=== PATIENT | female | born 1945 | race Hispanic/Latino ===

== ENCOUNTER 2018-12-11 15:12 | Emergency (ER) | payer BC ==
--- NOTE | 2018-12-11 16:15 | ED PDOC ---
HPI: Chest Pain Time Seen by Provider: 12/11/18 15:41 Chief Complaint (Nursing): Chest Pain Chief Complaint (Provider): Chest Pain History Per: Patient History/Exam Limitations: no limitations Onset/Duration Of Symptoms: Days Current Symptoms Are (Timing): Gone Now Quality: Sharp, Burning Additional Complaint(s): Robina Huang is a 73 year old female with a past medical history of hypertension, diabetes and depression who is presenting to the ED for evaluation of episodes of left sided chest pain radiating down left arm onset yesterday. Patient states that she had 2 episodes, one yesterday and one today both lasting for a couple minutes. She describes the pain as sharp and burning but resolved spontaneously. Patient states that at this time she has no chest pain, no arm pain, and no shortness of breath. She does admit that work stress has increased a lot unexpectedly, and reports that she is taking [place] for depression. Patient adds that her blood sugar has been elevated recently around 160-200, which concerned her. 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 PMD: Maddison Solomon Past Medical History Reviewed: Historical Data, Nursing Documentation, Vital Signs Vital Signs: Last Vital Signs Temp 97.9 F 12/11/18 15:18 Pulse 89 12/11/18 15:18 Resp 16 12/11/18 15:18 BP 169/80 H 12/11/18 15:18 Pulse Ox 98 12/11/18 15:18 - Medical History PMH: Depression, Diabetes, HTN - Surgical History Other surgeries: Hysterectomy - Family History Family History: States: Unknown Family Hx - Social History Current smoker - smoking cessation education provided: No Alcohol: None Drugs: Denies - Allergies Allergies/Adverse Reactions: Allergies Allergy/AdvReac Type Severity Reaction Status Date / Time Penicillins Allergy RASH Verified 12/11/18 15:18 Review of Systems ROS Statement: Except As Marked, All Systems Reviewed And Found Negative Cardiovascular: Positive for: Chest Pain (resolved ) Respiratory: Negative for: Shortness of Breath Musculoskeletal: Positive for: Arm Pain (resolved ) Physical Exam - Reviewed Nursing Documentation Reviewed: Yes Vital Signs Reviewed: Yes - Physical Exam Appears: Positive for: Well, Non-toxic, No Acute Distress Head Exam: Positive for: ATRAUMATIC, NORMAL INSPECTION, NORMOCEPHALIC Skin: Positive for: Normal Color, Warm, DRY Eye Exam: Positive for: EOMI, Normal appearance, PERRL Cardiovascular/Chest: Positive for: Regular Rate, Rhythm. Negative for: Murmur Respiratory: Positive for: Normal Breath Sounds. Negative for: Respiratory Distress Gastrointestinal/Abdominal: Positive for: Normal Exam, Soft. Negative for: Tenderness Back: Positive for: Normal Inspection Extremity: Positive for: Normal ROM. Negative for: Pedal Edema, Calf Tenderness, Deformity, Swelling Neurologic/Psych: Positive for: Alert, Oriented. Negative for: Motor/Sensory Deficits - Laboratory Results Result Diagrams: 12/11/18 16:33 12/11/18 16:33 - ECG O2 Sat by Pulse Oximetry: 98 (RA) Pulse Ox Interpretation: Normal Medical Decision Making Medical Decision Making: Time: 15:23 A/P: workup for ACS --Low suspicion at this time --Reevaluate patient Time: 2127 --2 sets of troponin came back normal. Patient's vitals remain within normal limits. --Patient is pain free --Instructed to follow up with PMD and arranged an outpatient follow up with commissions analyst. --Return parameters were discussed. Scribe Attestation: Documented by Lluvia Britt, acting as a scribe for Karol Acosta MD. Provider Scribe Attestation: All medical record entries made by the Scribe were at my direction and personally dictated by me. I have reviewed the chart and agree that the record accurately reflects my personal performance of the history, physical exam, me dical decision making, and the department course for this patient. I have also personally directed, reviewed, and agree with the discharge instructions and disposition. Disposition - Clinical Impression Clinical Impression: Chest pain - Disposition Referrals: Irasema Ramirez MD [Staff Provider] - Disposition: Routine/Home Disposition Time: 21:26 Condition: IMPROVED Additional Instructions: Follow up with primary medical doctor within one week. Follow up with a commissions analyst. Return to the emergency department if symptoms worsen or if new symptoms develop. Instructions: Chest Pain (DC), Heart Disease in Women (DC) Forms: [employer] (Panamanian), [facility] ED School/Work Excuse Print Language: MOLDOVAN
--- NOTE | 2018-12-11 16:40 | RAD ---
Date of service: 12/11/2018 HISTORY: cough COMPARISON: 03/18/2014 TECHNIQUE: Chest PA and lateral FINDINGS: LUNGS: No active pulmonary disease. PLEURA: No significant pleural effusion identified. No pneumothorax apparent. CARDIOVASCULAR: No aortic atherosclerotic calcification present. Normal cardiac size. No pulmonary vascular congestion. OSSEOUS STRUCTURES: No significant abnormalities. VISUALIZED UPPER ABDOMEN: Normal. OTHER FINDINGS: None. IMPRESSION: No active disease.
[2018-12-11 16:42] LABS: BASO # 0.1 K/uL (0.0-0.2); BASO % 0.9 % (0.0-2.0); EOS # 0.2 K/uL (0.0-0.7); EOS % 2.2 % (0.0-4.0); HEMOGLOBIN 11.3 g/dL (12.0-16.0); LYMPH # 3.2 K/uL (1.0-4.3); LYMPH % 33.2 % (20.0-40.0); MEAN CELL VOLUME 79.9 fl (81.0-99.0); MEAN CORPUSCULAR HEMOGLOBIN 26.2 pg (27.0-31.0); MEAN CORPUSCULAR HGB CONC 32.8 g/dL (33.0-37.0); MEAN PLATELET VOLUME 9.1 fl (7.2-11.7); MONO # 0.6 K/uL (0.0-0.8); NEUT # 5.6 K/uL (1.8-7.0); NEUT % 57.7 % (50.0-75.0); RBC 4.33 Mil/uL (3.80-5.20); RED CELL DISTRIBUTION WIDTH 17.6 % (11.5-14.5); WHITE BLOOD COUNT 9.7 K/uL (4.8-10.8)
[2018-12-11 16:52] LABS: INR 0.9; PROTHROMBIN TIME 10.6 Seconds (9.8-13.1)
[2018-12-11 16:55] LABS: PARTIAL THROMBOPLASTIN TIME 45.1 Seconds (25.6-37.1)
[2018-12-11 17:03] LABS: BLOOD UREA NITROGEN 22 mg/dl (7-17); CALCIUM 10.1 mg/dL (8.4-10.2); GFR NON-AFRICAN AMERICAN > 60
[2018-12-11 19:49] VITALS: TEMP 98; O2SAT 98
[2018-12-11 22:16] VITALS: BP 128/71; PULSE 82; RESP 20
--- NOTE | 2018-12-12 10:20 | CARD ---
APPROVED REPORT Date of service: 12/11/2018 EKG Measurement Heart [id number] <Conclusion> Normal sinus rhythm Normal ECG
== END 2018-12-11 22:16 | disposition home or self-care (01) ==
LOC: H.ER 15:12
DX: R07.89 Other chest pain (principal); E11.9 Type 2 diabetes mellitus without complications; I10 Essential (primary) hypertension; Z88.0 Allergy status to penicillin

== ENCOUNTER 2019-03-26 09:07 | Inpatient (IN) | payer BC, MEDICARE ==
[2019-03-26] MEDS ORDERED: Iohexol 240 (50 ml) PO ONE (10:17)
[2019-03-26] MEDS ORDERED: Sodium Chloride 0.9% 1,000 ML IV SCH (10:30)
--- NOTE | 2019-03-26 10:32 | ED PDOC ---
HPI: Abdomen Time Seen by Provider: 03/26/19 09:52 Chief Complaint (Nursing): GI Problem Chief Complaint (Provider): Diarrhea History Per: Patient History/Exam Limitations: no limitations Onset/Duration Of Symptoms: Days (Sunday) Additional Complaint(s): Pt. with diarrhea, nonbloody since Sunday. Her has the same. They were in [place] and had something to eat and could have caused the issue. Came back Sunday and he was admitted to the hospital. Pt. was given cipro by the urgent care which she did not start. Has cramping abd pain as well. No chest pain, dyspnea, weakness, dizziness. No fever. Past Medical History Reviewed: Nursing Documentation, Vital Signs Vital Signs: Last Vital Signs Temp 98.3 F 03/26/19 09:27 Pulse 101 H 03/26/19 09:27 Resp 17 03/26/19 09:27 BP 124/70 03/26/19 09:27 Pulse Ox 98 03/26/19 09:34 Primary Care Provider: FAMILY PROVIDER,NO - Medical History PMH: Depression, Diabetes, HTN, Hypercholesterolemia - Surgical History Surgical History: No Surg Hx - Family History Family History: States: Unknown Family Hx - Living Arrangements Living Arrangements: With Family - Social History Alcohol: None Drugs: Denies - Allergies Allergies/Adverse Reactions: Allergies Allergy/AdvReac Type Severity Reaction Status Date / Time Fbemgsb-Aqz-Cpi Reductase Allergy Mild RASH Verified 03/26/19 09:43 Inhibitor Penicillins Allergy RASH Verified 03/26/19 09:37 Review of Systems ROS Statement: Except As Marked, All Systems Reviewed And Found Negative Gastrointestinal: Positive for: Abdominal Pain, Diarrhea. Negative for: Nausea, Vomiting Physical Exam - Reviewed Nursing Documentation Reviewed: Yes Vital Signs Reviewed: Yes - Physical Exam Appears: Positive for: Uncomfortable Head Exam: Positive for: ATRAUMATIC, NORMAL INSPECTION, NORMOCEPHALIC Skin: Positive for: Normal Color, Warm, DRY Eye Exam: Positive for: EOMI, Normal appearance, PERRL ENT: Positive for: Normal ENT Inspection Neck: Positive for: Normal, Painless ROM Cardiovascular/Chest: Positive for: Regular Rate, Rhythm Respiratory: Positive for: CNT, Normal Breath Sounds Gastrointestinal/Abdominal: Positive for: Soft, Tenderness (diffuse mild) Back: Positive for: Normal Inspection. Negative for: L CVA Tenderness, R CVA Tenderness Extremity: Positive for: Normal ROM. Negative for: Tenderness Neurological/Psych: Positive for: Awake, Alert, Normal Tone - Laboratory Results Result Diagrams: 03/26/19 10:30 03/26/19 10:30 Interpretation Of Abn Labs: 11.5 wbc, bun 30, trop mild elevation - ECG ECG: Positive for: Interpreted By Me, Viewed By Me ECG Rhythm: Positive for: Sinus Tachycardia O2 Sat by Pulse Oximetry: 98 Pulse Ox Interpretation: Normal - Radiology X-Ray: Read By Radiologist X-Ray Interpretation: No Acute Disease - Progress ED Course And Treament: CT: Cholelithiasis with gallbladder wall thickening and pericholecystic fluid as well as surrounding infiltration changes of the mesentery. Findings may represent cholecystitis. Wall thickening of portions of the proximal small, bowel ileum and colon consistent with inflammatory bowel disease 1200: Continue fluids for dehydration. 1438: Stable. Spoke with for Dr. Dumont. Will admit tele. 1442: Spoke with Dr. Pizarro. Will consult. Wants to trend troponin and will see pt. in [place]. Pt. with no chest pain. No dyspnea. 1445: CT shows possible cholecystitis and colon inflammation. Dr. Dent and surgery resident aware and will consult. 1456: Spoke with Dr. Hogan. Will consult. - Critical Care Total Time (In Min): 30 Documented Critical Care: Time excludes all time spent performint seperately billable procedures Disposition - Clinical Impression Clinical Impression: Sepsis, Abdominal pain, Diarrhea, Elevated troponin, Colitis, Cholecystitis, Dehydration - Patient ED Disposition Is Patient to be Admitted: Yes Counseled Patient/Family Regarding: Studies Performed, Diagnosis - Disposition Disposition Time: 14:39 Condition: FAIR - Pt Status Changed To: Hospital Disposition Of: Inpatient - Admit Certification Admit to Inpatient:: After my assessment, the patient will require hospitalization for at least two midnights. This is because of the severity of symptoms shown, intensity of services needed, and/or the medical risk in this patient being treated as an outpatient. - POA Present On Arrival: None
[2019-03-26 10:34] LABS: VENOUS BLOOD GAS BASE EXCESS -2.7 mmol/L (0.0-2.0); VENOUS BLOOD GAS PCO2 40 mmHg (40-60); VENOUS BLOOD GAS PO2 20 mm/Hg (30-55); VENOUS BLOOD PH 7.36 (7.32-7.43)
[2019-03-26 10:39] LABS: BASO # 0.1 K/uL (0.0-0.2); BASO % 0.5 % (0.0-2.0); EOS % 0.1 % (0.0-4.0); HEMOGLOBIN 11.1 g/dL (12.0-16.0); LYMPH # 1.6 K/uL (1.0-4.3); LYMPH % 14.2 % (20.0-40.0); MEAN CELL VOLUME 79.6 fl (81.0-99.0); MEAN CORPUSCULAR HEMOGLOBIN 25.7 pg (27.0-31.0); MEAN CORPUSCULAR HGB CONC 32.3 g/dL (33.0-37.0); MONO # 1.3 K/uL (0.0-0.8); NEUT # 8.6 K/uL (1.8-7.0); NEUT % 74.2 % (50.0-75.0); RBC 4.31 Mil/uL (3.80-5.20); WHITE BLOOD COUNT 11.5 K/uL (4.8-10.8)
[2019-03-26] MEDS ORDERED: Iohexol 240 (50 ml) ONE (10:40)
[2019-03-26 10:58] LABS: ALB/GLOB RATIO 1.3 (1.0-2.1); ALBUMIN 4.1 g/dL (3.5-5.0); ALT/SGPT 36 U/L (9-52); AST/SGOT 57 U/L (14-36); BLOOD UREA NITROGEN 30 mg/dl (7-17); CALCIUM 8.8 mg/dL (8.4-10.2); GFR NON-AFRICAN AMERICAN > 60
[2019-03-26 11:03] LABS: INR 1.2; PROTHROMBIN TIME 13.5 Seconds (9.8-13.1)
[2019-03-26 11:05] LABS: PARTIAL THROMBOPLASTIN TIME 29.3 Seconds (25.6-37.1)
--- NOTE | 2019-03-26 11:36 | RAD ---
Date of service: 03/26/2019 HISTORY: Sepsis Patient COMPARISON: 12/11/2018 FINDINGS: LUNGS: No active pulmonary disease. PLEURA: No significant pleural effusion identified, no pneumothorax apparent. CARDIOVASCULAR: No atherosclerotic calcification present Normal. OSSEOUS STRUCTURES: No significant abnormalities. VISUALIZED UPPER ABDOMEN: Normal. OTHER FINDINGS: Stable hiatal hernia IMPRESSION: No active disease. No significant interval change compared to the prior examination(s).
--- NOTE | 2019-03-26 11:42 | CARD ---
APPROVED REPORT Date of service: 03/26/2019 EKG Measurement Heart [id number] <Conclusion> Sinus tachycardia Otherwise normal ECG
[2019-03-26] MEDS ORDERED: metroNIDAZOLE 500mg/100ml NS 100 ML IV STA (12:16)
[2019-03-26] MEDS ORDERED: Ciprofloxacin 400mg/200ml D5W 400 MG/200 ML BAG IV STA (12:16)
[2019-03-26] MEDS ORDERED: Sodium Chloride 0.9% 1,000 ML IV STA (12:18)
[2019-03-26] MEDS ORDERED: Ciprofloxacin 400mg/200ml D5W 400 MG/200 ML BAG IVPB ONE (12:52)
[2019-03-26] MEDS ORDERED: Iohexol 300 100 ML IJ ONE (13:16)
[2019-03-26] MEDS ORDERED: Sodium Chloride 0.9% 50 ML IV ONE (13:16)
--- NOTE | 2019-03-26 14:41 | CT ---
Date of service: 03/26/2019 PROCEDURE: CT abdomen and pelvis HISTORY: Abdominal pain COMPARISON: Prior study available comparison. TECHNIQUE: Contiguous axial images of the abdomen and pelvis performed following oral and intravenous injection of approximately 95 cc Omnipaque 300 contrast material. Additional 2D sagittal and coronal reformats generated. Radiation dose: Total exam DLP = 650.17 mGy-cm. This CT exam was performed using one or more of the following dose reduction techniques: Automated exposure control, adjustment of the mA and/or kV according to patient size, and/or use of iterative reconstruction technique. FINDINGS: LOWER THORAX: Heart size is within range of normal. No significant pericardial effusion. There is a large hiatal hernia with wall thickening of the distal esophagus likely due protrusion gastric mucosa. Note that possibility of esophagitis and/or gastritis cannot be excluded. LIVER: The liver is enlarged measuring over 22 cm in CC dimension. Moderate diffuse fatty hepatic infiltration. Portal and splenic veins are opacified. There is a tiny approximately 2.8 mm low-attenuation focus superior aspect left lobe liver near the diaphragmatic dome which too small to characterize. Follow-up CT scan at interval could be performed to assess stability. GALLBLADDER AND BILE DUCTS: Cholelithiasis with mild gallbladder wall thickening and pericholecystic fluid with some vague infiltration changes. Findings may represent acute cholecystitis. Clinical correlation recommended. PANCREAS: The pancreas is atrophic and fatty replaced.. SPLEEN: Spleen exhibits normal size and attenuation pattern without mass collection or calcification ADRENALS: The glands appear grossly unremarkable. KIDNEYS AND URETERS: Kidneys demonstrate symmetric nephrograms. No evidence of nephrolithiasis or hydronephrosis. BLADDER: Urinary bladder is completely distended with no evidence of intraluminal gallbladder calculi. REPRODUCTIVE: Hysterectomy. APPENDIX: The appendix is not positively identified however no obvious inflammatory changes in the right lower quadrant of the abdomen not withstanding wall thickening of the terminal ileum large bowel. BOWEL: Evaluation of the bowel is limited due to incomplete opacification.. As mentioned above, there is a large hiatal hernia through which duodenal diverticulum with distended distal duodenum.. Several loops of proximal small bowel also slightly prominent in caliber and exhibit mild wall thickening.. No evidence of acute mechanical bowel obstruction with oral contrast material opacifying the distal small bowel and colon. There is wall thickening of the cecum ascending and most of the descending as well as sigmoid colon consistent with colitis. Collectively findings may represent inflammatory bowel disease with wall thickening of the small bowel as well. Multiple colonic diverticula are also noted along the distal descending and sigmoid colon which are felt to be incidental.. There appears to be some minor atelectasis-scarring changes both lung bases. PERITONEUM: Unremarkable. No fluid collection. No free air. LYMPH NODES: Multiple small to medium-sized mesenteric lymph nodes including lymph nodes in the right lower quadrant of the abdomen VASCULATURE: Unremarkable. No aortic aneurysm. Aortic atherosclerotic calcification or mural plaque present. BONES: Mild multilevel degenerative spondylosis of the lower thoracic and lumbar spine. OTHER FINDINGS: None. IMPRESSION: Hepatomegaly with moderate fatty hepatic infiltration.. Tiny 2.8 mm low-attenuation focus superior aspect left lobe liver near the diaphragmatic dome too small to characterize. Followup interval could be performed to assess stability. Cholelithiasis with gallbladder wall thickening and pericholecystic fluid as well as surrounding infiltration changes of the mesentery. Findings may represent cholecystitis. Wall thickening of portions of the proximal small, bowel ileum and colon consistent with inflammatory bowel disease. There also colonic diverticula which are felt to be incidental. Apparent duodenal diverticulum.
[2019-03-26] MEDS ORDERED: metroNIDAZOLE 500mg/100ml NS 100 ML IVPB ONE (15:05)
--- NOTE | 2019-03-26 15:58 | CP.PCM.PN ---
Subjective - Date & Time of Evaluation Date of Evaluation: 03/26/19 Time of Evaluation: 15:58 Objective - Vital Signs/Intake and Output Vital Signs (last 24 hours): Temp Pulse Resp BP Pulse Ox 97.8 F 105 H 20 121/64 98 03/26/19 13:30 03/26/19 13:30 03/26/19 13:30 03/26/19 13:30 03/26/19 15:08 - Medications Medications: Current Medications Sodium Chloride (Sodium Chloride 0.9%) 1,000 mls @ 1,000 mls/hr IV .Q1H MARIELENA Last Admin: 03/26/19 10:45 Dose: 1,000 mls/hr - Labs Labs: 03/26/19 10:30 03/26/19 10:30 PT 13.5 Seconds (9.8-13.1) H 03/26/19 10:30 INR 1.2 03/26/19 10:30 APTT 29.3 Seconds (25.6-37.1) 03/26/19 10:30
--- NOTE | 2019-03-26 15:58 | CP.PCM.CON ---
History of Present Illness - History of Present Illness History of Present Illness: ASKED TO SEE PT FOR ELEVATED TROP LEVEL. Past Patient History - Past Social History Alcohol: None Drugs: Denies - CARDIAC Hx Hypercholesterolemia: Yes Hx Hypertension: Yes - ENDOCRINE/METABOLIC Hx Diabetes Mellitus Type 2: Yes - PSYCHIATRIC Hx Depression: Yes - SURGICAL HISTORY Hx Hysterectomy: Yes - ANESTHESIA Hx Anesthesia: Yes Hx Anesthesia Reactions: No Meds Allergies/Adverse Reactions: Allergies Allergy/AdvReac Type Severity Reaction Status Date / Time Tkarxtf-Drt-Pty Reductase Allergy Mild RASH Verified 03/26/19 09:43 Inhibitor Penicillins Allergy RASH Verified 03/26/19 09:37 - Medications Medications: Current Medications Sodium Chloride (Sodium Chloride 0.9%) 1,000 mls @ 1,000 mls/hr IV .Q1H MARIELENA Last Admin: 03/26/19 10:45 Dose: 1,000 mls/hr Results - Vital Signs Recent Vital Signs: Last Vital Signs Temp 97.8 F 03/26/19 13:30 Pulse 105 H 03/26/19 13:30 Resp 20 03/26/19 13:30 BP 121/64 03/26/19 13:30 Pulse Ox 98 03/26/19 15:08 - Labs Result Diagrams: 03/26/19 10:30 03/26/19 10:30 Labs: Laboratory Results - last 24 hr 03/26/19 03/26/19 03/26/19 10:01 10:27 10:30 WBC 11.5 H RBC 4.31 Hgb 11.1 L Hct 34.3 MCV 79.6 L MCH 25.7 L MCHC 32.3 L RDW 17.0 H Plt Count 317 MPV 9.0 Neut % (Auto) 74.2 Lymph % (Auto) 14.2 L Glenn % (Auto) 11.0 H Eos % (Auto) 0.1 Baso % (Auto) 0.5 Neut # (Auto) 8.6 H Lymph # (Auto) 1.6 Glenn # (Auto) 1.3 H Eos # (Auto) 0.0 Baso # (Auto) 0.1 PT INR APTT pO2 20 L VBG pH 7.36 VBG pCO2 40 VBG HCO3 21.4 VBG Total CO2 23.8 VBG O2 Sat (Calc) 38.8 L VBG Base Excess -2.7 L VBG Potassium 4.9 Sodium 129.0 L Chloride 100.0 Glucose 220 H Lactate 1.6 FiO2 21.0 Potassium Carbon Dioxide Anion Gap BUN Creatinine Est GFR ( Amer) Est GFR (Non-Af Amer) POC Glucose (mg/dL) 225 H Random Glucose Calcium Phosphorus Magnesium Total Bilirubin AST ALT Alkaline Phosphatase Troponin I Total Protein Albumin Globulin Albumin/Globulin Ratio Venous Blood Potassium 4.9 03/26/19 03/26/19 10:30 10:30 WBC RBC Hgb Hct MCV MCH MCHC RDW Plt Count MPV Neut % (Auto) Lymph % (Auto) [place] % (Auto) Eos % (Auto) Baso % (Auto) Neut # (Auto) Lymph # (Auto) Glenn # (Auto) Eos # (Auto) Baso # (Auto) PT 13.5 H INR 1.2 APTT 29.3 pO2 VBG pH VBG pCO2 VBG HCO3 VBG Total CO2 VBG O2 Sat (Calc) VBG Base Excess VBG Potassium Sodium 133 Chloride 96 L Glucose Lactate FiO2 Potassium 4.3 Carbon Dioxide 23 Anion Gap 18 BUN 30 H Creatinine 0.8 Est GFR ( Amer) > 60 Est GFR (Non-Af Amer) > 60 POC Glucose (mg/dL) Random Glucose 218 H Calcium 8.8 Phosphorus 4.0 Magnesium 1.5 L Total Bilirubin 0.5 AST 57 H ALT 36 Alkaline Phosphatase 51 Troponin I 0.2150 H* Total Protein 7.4 Albumin 4.1 Globulin 3.3 Albumin/Globulin Ratio 1.3 Venous Blood Potassium Assessment & Plan (1) Prerenal azotemia Status: Acute (2) Dehydration Status: Acute (3) Diarrhea Status: Acute (4) Elevated troponin Status: Acute - Assessment and Plan (Free Text) Plan: TREND TROPONINS THE MINOR ELEVATION IS LIKELY DUE TO PRERENAL STATE ECHO IN AM MONITOR LYTES IVF PT IS DEHYDRATED. 45 MIN TOTAL CARE TIME.
--- NOTE | 2019-03-26 16:15 | CP.PCM.CON ---
History of Present Illness - History of Present Illness History of Present Illness: Surgery Consult Note- Dr. Nelson Reason for Consult: rule out Acute Cholecystitis 73F pmhx significant for DM, HTN, Depression on [place] presents to [facility] ED w/ multiple episodes of diarrhea and generalized abdominal pain. Of note patient was recently in [place] and returned on Sunday and started to develop symptoms when returned to [facility]. is admitted for the same symptoms. During ED workup patient underwent CT scan which showed questionable thickened gallbladder wall, and possible vivek-cholecystic fluid. In addition patient has elevated troponins. T.bili and liver enzymes within normal limits. Subsequently surgery was consulted. During examination patient denies mid-epigastric, RUQ, or right scapular pain. Subjective fevers, and nausea. No changes in Urinary habits. 12 pt ROS conducted, negative otherwise stated above PMH: stated above PSH: hysterectomy, diagnostic laparoscopy (both in 1988) ALL: PCN- (Rash), Statin SocialHx: denies current tobacco, etoh, recreational drug use FH: non-contributory Review of Systems - Review of Systems All systems: reviewed and no additional remarkable complaints except - Constitutional Constitutional: As Per HPI Past Patient History - Past Social History Alcohol: None Drugs: Denies - CARDIAC Hx Hypercholesterolemia: Yes Hx Hypertension: Yes - ENDOCRINE/METABOLIC Hx Diabetes Mellitus Type 2: Yes - PSYCHIATRIC Hx Depression: Yes - SURGICAL HISTORY Hx Hysterectomy: Yes - ANESTHESIA Hx Anesthesia: Yes Hx Anesthesia Reactions: No Meds Allergies/Adverse Reactions: Allergies Allergy/AdvReac Type Severity Reaction Status Date / Time Hbcrybb-Ngx-Pzk Reductase Allergy Mild RASH Verified 03/26/19 09:43 Inhibitor Penicillins Allergy RASH Verified 03/26/19 09:37 - Medications Medications: Current Medications Sodium Chloride (Sodium Chloride 0.9%) 1,000 mls @ 1,000 mls/hr IV .Q1H MARIELENA Last Admin: 03/26/19 10:45 Dose: 1,000 mls/hr Physical Exam - Constitutional Appears: Non-toxic, No Acute Distress - Head Exam Head Exam: ATRAUMATIC Additional comments: thinned hair - Eye Exam Eye Exam: EOMI. absent: Scleral icterus - ENT Exam ENT Exam: Mucous Membranes Moist - Respiratory Exam Respiratory Exam: NORMAL BREATHING PATTERN. absent: Accessory Muscle Use, Respiratory Distress - Cardiovascular Exam Cardiovascular Exam: REGULAR RHYTHM. absent: Bradycardia, Tachycardia - GI/Abdominal Exam GI & Abdominal Exam: Soft, Tenderness. absent: Distended, Firm, Guarding, Hernia, Rigid Additional comments: No RUQ abdominal pain Negative Abel's sign Results - Vital Signs Recent Vital Signs: Last Vital Signs Temp 97.8 F 03/26/19 13:30 Pulse 105 H 03/26/19 13:30 Resp 20 03/26/19 13:30 BP 121/64 03/26/19 13:30 Pulse Ox 98 03/26/19 15:08 - Labs Result Diagrams: 03/26/19 10:30 03/26/19 10:30 Labs: Laboratory Results - last 24 hr 03/26/19 03/26/19 03/26/19 10:01 10:27 10:30 WBC 11.5 H RBC 4.31 Hgb 11.1 L Hct 34.3 MCV 79.6 L MCH 25.7 L MCHC 32.3 L RDW 17.0 H Plt Count 317 MPV 9.0 Neut % (Auto) 74.2 Lymph % (Auto) 14.2 L [place] % (Auto) 11.0 H Eos % (Auto) 0.1 Baso % (Auto) 0.5 Neut # (Auto) 8.6 H Lymph # (Auto) 1.6 [place] # (Auto) 1.3 H Eos # (Auto) 0.0 Baso # (Auto) 0.1 PT INR APTT pO2 20 L VBG pH 7.36 VBG pCO2 40 VBG HCO3 21.4 VBG Total CO2 23.8 VBG O2 Sat (Calc) 38.8 L VBG Base Excess -2.7 L VBG Potassium 4.9 Sodium 129.0 L Chloride 100.0 Glucose 220 H Lactate 1.6 FiO2 21.0 Potassium Carbon Dioxide Anion Gap BUN Creatinine Est GFR ( Amer) Est GFR (Non-Af Amer) POC Glucose (mg/dL) 225 H Random Glucose Calcium Phosphorus Magnesium Total Bilirubin AST ALT Alkaline Phosphatase Troponin I Total Protein Albumin Globulin Albumin/Globulin Ratio Venous Blood Potassium 4.9 03/26/19 03/26/19 10:30 10:30 WBC RBC Hgb Hct MCV MCH MCHC RDW Plt Count MPV Neut % (Auto) Lymph % (Auto) [place] % (Auto) Eos % (Auto) Baso % (Auto) Neut # (Auto) Lymph # (Auto) [place] # (Auto) Eos # (Auto) Baso # (Auto) PT 13.5 H INR 1.2 APTT 29.3 pO2 VBG pH VBG pCO2 VBG HCO3 VBG Total CO2 VBG O2 Sat (Calc) VBG Base Excess VBG Potassium Sodium 133 Chloride 96 L Glucose Lactate FiO2 Potassium 4.3 Carbon Dioxide 23 Anion Gap 18 BUN 30 H Creatinine 0.8 Est GFR ( Amer) > 60 Est GFR (Non-Af Amer) > 60 POC Glucose (mg/dL) Random Glucose 218 H Calcium 8.8 Phosphorus 4.0 Magnesium 1.5 L Total Bilirubin 0.5 AST 57 H ALT 36 Alkaline Phosphatase 51 Troponin I 0.2150 H* Total Protein 7.4 Albumin 4.1 Globulin 3.3 Albumin/Globulin Ratio 1.3 Venous Blood Potassium Assessment & Plan - Assessment and Plan (Free Text) Assessment: 73F w/ Gastroenteritis Unlikely Acute Cholecystitis Plan: - Recommend IVF/Abx - Pain control PRN - will follow up Abd US - enteritis - no acute surgical intervention at this time; Not Acute Cholecystitis - d/w Dr. Nelson Surgical Attending [facility] PGY2
--- NOTE | 2019-03-26 18:14 | CP.CCUPN ---
CCU Subjective - Physician Review Subjective (Free Text): Consultation for admission to ICU: Interim events; Medical and Nursing notes all reviewed: 73F admitted today for abdominal pain and diarrhea, CTAP findings were suggestive of colitis and GB wall thickening. No fevers noted an admission so far. No hypotension noted, RA SPO2 is normal. Mild tachycardia is noted at 105/min. No chest discomfort reported, nor dyspnea, palpitations, diaphoresis, N/V, recent fevers or chills, no cough. Vitals: Afebrile, HR 105, SBP 120s, RR 17-20, SPO2 at best 98%. ROS: No other pertinent negs or positives on 10+ system review. Home Meds: none listed. Allergies: statin-class meds, Penicillin PMSFH: All other Nursing and physician documentation reviewed to date; no new pertinent info noted relevant to current medical problems. EXAM- HEENT: no icterus, no gaze preference, pupils equal and reactive 3 mm size. NECK: supple, no visible JVD, no adenopathy, thyroid non- palpable. CHEST: decreased BS at the bases, no wheezes audible bilaterally. HEART: regular, distant, tachy S1S2, no rubs or murmurs noted ABD: soft, no tympany, no fluid wave, no guarding or focal tenderness; no organomegaly- spleen and liver non-palpable, BS hypoactive. EXT: no cyanosis, no calf tenderness or palpable cords, distal pulses intact and symmetrical. NEURO: no gross focal motor deficits. SKIN: no rashes, warm and dry LABS: WBC= 11.5 HGB= 11.1 PLTs= 317K INR= 1.2 VBG 7.36/40/20 with 38/% satn. 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 EKG: sinus 104/min, no acute changes compared to 12/11/18 study. IMPRESSION / MAJOR PROBLEMS NOW: 1. Non-Specific Abdominal Pain, 2 Non-infectious Colitis with Diarrhea r/o Food intolerance 2. Azotemia / Dehydration 3. r/o NSTEMI 4. No Severe Sepsis physiology PLAN: 1. Telemetry bed monitoring. No need for ICU admission or observation, unless she fails to respond to therapy. 2. Serial Trops, repeat EKG. ECHO to assess for any hypokinesis. 3. IVF hydration. Fluid challenge if oliguric. 4. Consider Abdominal US to complement CTAP findings.
--- NOTE | 2019-03-26 18:19 | US ---
Date of service: 03/26/2019 HISTORY: RUQ abd pain COMPARISON: None. TECHNIQUE: Sonographic evaluation of the right upper quadrant of the abdomen. FINDINGS: LIVER: Measures 20.7 cm in length. There is diffuse increased echogenicity of the liver parenchyma. No mass. No intrahepatic bile duct dilatation. GALLBLADDER: There are multiple gallstones. The gallbladder is distended and there is mild wall thickening/edema/irregularity in the gallbladder wall. No wall thickening or pericholecystic fluid. The sonographic Abel's sign is negative. COMMON BILE DUCT: Measures 4.8 mm. No stones. No dilatation. PANCREAS: Unremarkable as visualized. No mass. No ductal dilatation. RIGHT KIDNEY: Measures 10.7 cm in length. Normal echogenicity. No calculus, mass, or hydronephrosis. AORTA: No aneurysmal dilatation. IVC: Unremarkable. OTHER FINDINGS: None . IMPRESSION: Distended gallbladder, cholelithiasis and mild gallbladder wall edema/irregularity could represent acute calculus cholecystitis in the appropriate clinical setting. Clinical follow-up is advised.
[2019-03-26 22:22] LABS: SQUAMOUS EPITHIAL 1 /hpf (0-5); URINE BACTERIA MANY (<OCC); URINE BILIRUBIN NEGATIVE (NEGATIVE); URINE BLOOD NEGATIVE (NEGATIVE); URINE CLARITY CLEAR (Clear); URINE COLOR YELLOW (YELLOW); URINE GLUCOSE (UA) NEG (NEGATIVE); URINE LEUKOCYTE ESTERASE NEG Leu/uL (Negative); URINE PROTEIN NEGATIVE (NEGATIVE); URINE UROBILINOGEN 0.2-1.0 mg/dL (0.2-1.0)
[2019-03-26] MEDS ORDERED: Lactated Ringer's 1,000 ML IV SCH (23:00)
[2019-03-27] MEDS: Ciprofloxacin 400mg/200ml D5W 400 MG/200 ML BAG IVPB SCH ×2 (00:29→12:23)
[2019-03-27] MEDS: metroNIDAZOLE 500mg/100ml NS 100 ML IVPB SCH ×3 (00:29→17:49)
[2019-03-27] MEDS ORDERED: metroNIDAZOLE 500mg/100ml NS IVPB SCH (01:00)
[2019-03-27 02:31] VITALS: BMI 25.4
[2019-03-27 06:30] LABS: BASO # 0.1 K/uL (0.0-0.2); BASO % 0.5 % (0.0-2.0); EOS # 0.1 K/uL (0.0-0.7); EOS % 1.4 % (0.0-4.0); HEMOGLOBIN 11.3 g/dL (12.0-16.0); LYMPH # 1.8 K/uL (1.0-4.3); LYMPH % 16.5 % (20.0-40.0); MEAN CELL VOLUME 79.7 fl (81.0-99.0); MEAN CORPUSCULAR HEMOGLOBIN 26.4 pg (27.0-31.0); MEAN CORPUSCULAR HGB CONC 33.1 g/dL (33.0-37.0); MONO # 1.2 K/uL (0.0-0.8); MONO % 11.4 % (0.0-10.0); NEUT # 7.6 K/uL (1.8-7.0); NEUT % 70.2 % (50.0-75.0); NRBC % 0.1 % (0.0-0.0); RBC 4.28 Mil/uL (3.80-5.20); RED CELL DISTRIBUTION WIDTH 16.9 % (11.5-14.5); WHITE BLOOD COUNT 10.8 K/uL (4.8-10.8)
[2019-03-27 06:46] LABS: ALB/GLOB RATIO 1.1 (1.0-2.1); ALBUMIN 3.2 g/dL (3.5-5.0); ALT/SGPT 34 U/L (9-52); AST/SGOT 42 U/L (14-36); BLOOD UREA NITROGEN 13 mg/dl (7-17); CALCIUM 8.1 mg/dL (8.4-10.2); GFR NON-AFRICAN AMERICAN > 60
[2019-03-27] MEDS: GlipiZIDE 5 mg SR Tab PO SCH (09:49)
[2019-03-27] MEDS: Enoxaparin 40 mg Syringe SC SCH (09:50)
[2019-03-27] MEDS: Pantoprazole 40 mg EC Tab PO SCH (09:50)
[2019-03-27] MEDS: Lithium Carbonate 150 MG CAP PO SCH ×2 (09:50→17:45)
[2019-03-27] MEDS: Lactobacillus Acidophilus 500 MU Cap PO SCH ×2 (09:55→17:51)
--- NOTE | 2019-03-27 10:45 | CP.PCM.PN ---
Subjective - Date & Time of Evaluation Date of Evaluation: 03/27/19 Time of Evaluation: 10:43 - Subjective Subjective: Surgery Progress note- Dr. Nelson Patient still has multiple episodes of diarrhea overnight. Stool started to turn dark, likely bilious fluid in nature. Denies fevers, chills, chest pain. Denies RUQ tenderness. Objective - Vital Signs/Intake and Output Vital Signs (last 24 hours): Temp Pulse Resp BP Pulse Ox 98.1 F 99 H 20 122/67 95 03/27/19 08:24 03/27/19 09:51 03/27/19 08:24 03/27/19 09:51 03/27/19 08:24 - Medications Medications: Current Medications Atorvastatin Calcium (Lipitor) 10 mg PO DAILY [facility] Last Admin: 03/27/19 09:49 Dose: 10 mg Enoxaparin Sodium (Lovenox) 40 mg SC DAILY [facility]; Protocol Last Admin: 03/27/19 09:50 Dose: 40 mg Glipizide (Glucotrol Xl) 5 mg PO ACB [facility] Last Admin: 03/27/19 09:49 Dose: 5 mg Sodium Chloride (Sodium Chloride 0.9%) 1,000 mls @ 1,000 mls/hr IV .Q1H [facility] Last Admin: 03/26/19 10:45 Dose: 1,000 mls/hr Ciprofloxacin (Cipro 400mg/200ml Dsw) 400 mg in 200 mls @ 200 mls/hr IVPB Q12H [facility]; Protocol Last Admin: 03/27/19 00:29 Dose: 200 mls/hr Lactated Ringer's (Lactated Ringer's) 1,000 mls @ 100 mls/hr IV .Q10H [facility] Last Admin: 03/26/19 23:22 Dose: 100 mls/hr Metronidazole (Flagyl 500mg/100ml Ns) 100 mls @ 100 mls/hr IVPB Q8 [facility] Last Admin: 03/27/19 09:48 Dose: 100 mls/hr Lactobacillus Acidophilus (Bacid Acidophilus) 1 cap PO BID [facility] Last Admin: 03/27/19 09:55 Dose: 1 cap Lisinopril (Zestril) 10 mg PO DAILY [facility] Last Admin: 03/27/19 09:51 Dose: 10 mg [place] Carbonate ([place] Carbonate 150mg) 150 mg PO BID [facility] Last Admin: 03/27/19 09:50 Dose: 150 mg Metformin HCl (Glucophage) 1,000 mg PO BID [facility] Last Admin: 03/27/19 09:48 Dose: 1,000 mg Pantoprazole Sodium (Protonix Ec Tab) 40 mg PO DAILY [facility] Last Admin: 03/27/19 09:50 Dose: 40 mg Sitagliptin Phosphate (Januvia) 100 mg PO DAILY [facility] Last Admin: 03/27/19 09:49 Dose: 100 mg - Labs Labs: 03/27/19 04:35 03/27/19 04:35 PT 13.5 Seconds (9.8-13.1) H 03/26/19 10:30 INR 1.2 03/26/19 10:30 APTT 29.3 Seconds (25.6-37.1) 03/26/19 10:30 - Constitutional Appears: Non-toxic, No Acute Distress - Head Exam Head Exam: ATRAUMATIC - Eye Exam Eye Exam: EOMI. absent: Scleral icterus - ENT Exam ENT Exam: Mucous Membranes Dry - Respiratory Exam Respiratory Exam: NORMAL BREATHING PATTERN. absent: Accessory Muscle Use, Respiratory Distress - Cardiovascular Exam Cardiovascular Exam: REGULAR RHYTHM. absent: Bradycardia, Tachycardia - GI/Abdominal Exam GI & Abdominal Exam: Distended, Soft, Tenderness (generalized tenderness. No RUQ tenderness). absent: Firm, Guarding, Rigid - Neurological Exam Neurological Exam: Alert, Awake, Oriented x3 - Psychiatric Exam Psychiatric exam: Normal Affect - Skin Skin Exam: Intact, Warm Assessment and Plan - Assessment and Plan (Free Text) Assessment: 73F w/ Enteritis Plan: - recommend CLD - Ice chips for comfort - c/w Abx - stool work up - no acute surgical intervention - please re-consult as needed - d/w Dr. Nelson Surgical attending [facility] PGY2
[2019-03-27] MEDS ORDERED: Lactated Ringer's 1,000 ML IV SCH (11:00)
[2019-03-27] MEDS: Lactated Ringer's 1,000 ML IV SCH (12:30)
--- NOTE | 2019-03-27 18:39 | CP.PCM.HP ---
History of Present Illness - History of Present Illness History of Present Illness: 73 yo female presented to ED with diarrhea and abdominal pain since return from [place] over the weekend. CT A/P was completed in ED, possible cholecystitis and colon inflammation. Troponin was noted to be elevated as well. Surgery and Cardiology was consulted. Patient seen and examined at bedside. No chest pain, sob, palpitations. Abdominal cramping + unable to tolerate po since admission though would like to advance diet now since she feels better no other complaints offered at this time meds: as per chart allergies: as per chart fam hx: non contributory Present on Admission - Present on Admission Any Indicators Present on Admission: No Review of Systems - Review of Systems All systems: reviewed and no additional remarkable complaints except (menioted above) Past Patient History - Past Medical History & Family History Past Medical History?: Yes - Past Social History Smoking Status: Never Smoked - CARDIAC Hx Cardiac Disorders: Yes Hx Hypercholesterolemia: Yes Hx Hypertension: Yes - PULMONARY Hx Respiratory Disorders: No - NEUROLOGICAL Hx Neurological Disorder: No - HEENT Hx HEENT Problems: No - RENAL Hx Chronic Kidney Disease: No - ENDOCRINE/METABOLIC Hx Diabetes Mellitus Type 2: Yes - HEMATOLOGICAL/ONCOLOGICAL Hx Blood Disorders: No - INTEGUMENTARY Hx Dermatological Problems: No - MUSCULOSKELETAL/RHEUMATOLOGICAL Hx Musculoskeletal Disorders: Yes Hx Falls: Yes - GASTROINTESTINAL Hx Gastrointestinal Disorders: No - GENITOURINARY/GYNECOLOGICAL Hx Genitourinary Disorders: No - PSYCHIATRIC Hx Depression: Yes Hx Substance Use: No - SURGICAL HISTORY Hx Hysterectomy: Yes - ANESTHESIA Hx Anesthesia: Yes Hx Anesthesia Reactions: No Hx Malignant Hyperthermia: No Has any member of the family had a problem w/ anesthesia?: No Meds Home Medications: Home Medication List Medication Instructions Recorded Confirmed Type Cefpodoxime [Vantin] 200 mg PO BID #14 tab 03/29/19 Rx Allergies/Adverse Reactions: Allergies Allergy/AdvReac Type Severity Reaction Status Date / Time [id number] Reductase Allergy Mild RASH Verified 03/26/19 09:43 Inhibitor Penicillins Allergy RASH Verified 03/26/19 09:37 Physical Exam - Constitutional Appears: Non-toxic, No Acute Distress - Head Exam Head Exam: NORMAL INSPECTION - Eye Exam Eye Exam: Normal appearance - Respiratory Exam Respiratory Exam: NORMAL BREATHING PATTERN - Cardiovascular Exam Cardiovascular Exam: +S1, +S2 - GI/Abdominal Exam GI & Abdominal Exam: Normal Bowel Sounds, Soft, Tenderness - Extremities Exam Extremities exam: Positive for: normal inspection - Neurological Exam Neurological exam: Alert, Oriented x3 - Psychiatric Exam Psychiatric exam: Normal Affect, Normal Mood - Skin Skin Exam: Normal Color, Warm Results - Vital Signs Recent Vital Signs: Last Vital Signs Temp 98.5 F 03/27/19 16:00 Pulse 92 H 03/27/19 16:00 Resp 16 03/27/19 16:00 BP 122/72 03/27/19 16:00 Pulse Ox 95 03/27/19 16:00 - Labs Result Diagrams: 03/28/19 09:55 03/28/19 09:55 Labs: Laboratory Results - last 24 hr 03/26/19 03/26/19 03/27/19 20:30 23:39 04:35 WBC 10.8 RBC 4.28 Hgb 11.3 L Hct 34.1 MCV 79.7 L MCH 26.4 L MCHC 33.1 RDW 16.9 H Plt Count 314 MPV 9.0 Neut % (Auto) 70.2 Lymph % (Auto) 16.5 L Stokes % (Auto) 11.4 H Eos % (Auto) 1.4 Baso % (Auto) 0.5 Neut # (Auto) 7.6 H Lymph # (Auto) 1.8 Stokes # (Auto) 1.2 H Eos # (Auto) 0.1 Baso # (Auto) 0.1 Sodium Potassium Chloride Carbon Dioxide Anion Gap BUN Creatinine Est GFR ( Amer) Est GFR (Non-Af Amer) POC Glucose (mg/dL) Random Glucose Calcium Total Bilirubin AST ALT Alkaline Phosphatase Troponin I 0.0580 Total Protein Albumin Globulin Albumin/Globulin Ratio Urine Color Yellow Urine Clarity Clear Urine pH 6.0 Ur Specific [place] 1.021 Urine Protein Negative Urine Glucose (UA) Neg Urine Ketones Negative Urine Blood Negative Urine Nitrate Positive H Urine Bilirubin Negative Urine Urobilinogen 0.2-1.0 Ur Leukocyte Esterase Neg Urine RBC (Auto) 2 Urine Microscopic WBC < 1 Ur Squamous Epith Cells 1 Urine Bacteria Many H C. difficile Ag & Toxin 03/27/19 03/27/19 03/27/19 04:35 05:29 06:18 WBC RBC Hgb Hct MCV MCH MCHC RDW Plt Count MPV Neut % (Auto) Lymph % (Auto) Stokes % (Auto) Eos % (Auto) Baso % (Auto) Neut # (Auto) Lymph # (Auto) Stokes # (Auto) Eos # (Auto) Baso # (Auto) Sodium 134 Potassium 3.6 Chloride 103 Carbon Dioxide 19 L Anion Gap 16 BUN 13 Creatinine 0.6 L Est GFR ( Amer) > 60 Est GFR (Non-Af Amer) > 60 POC Glucose (mg/dL) 175 H Random Glucose 188 H Calcium 8.1 L Total Bilirubin 0.4 AST 42 H D ALT 34 Alkaline Phosphatase 52 Troponin I 0.0370 Total Protein 6.3 Albumin 3.2 L D Globulin 3.1 Albumin/Globulin Ratio 1.1 Urine Color Urine Clarity Urine pH Ur Specific [place] Urine Protein Urine Glucose (UA) Urine Ketones Urine Blood Urine Nitrate Urine Bilirubin Urine Urobilinogen Ur Leukocyte Esterase Urine RBC (Auto) Urine Microscopic WBC Ur Squamous Epith Cells Urine Bacteria C. difficile Ag & Toxin 03/27/19 03/27/19 03/27/19 10:00 11:22 16:11 WBC RBC Hgb Hct MCV MCH MCHC RDW Plt Count MPV Neut % (Auto) Lymph % (Auto) Stokes % (Auto) Eos % (Auto) Baso % (Auto) Neut # (Auto) Lymph # (Auto) Stokes # (Auto) Eos # (Auto) Baso # (Auto) Sodium Potassium Chloride Carbon Dioxide Anion Gap BUN Creatinine Est GFR ( Amer) Est GFR (Non-Af Amer) POC Glucose (mg/dL) 199 H 154 H Random Glucose Calcium Total Bilirubin AST ALT Alkaline Phosphatase Troponin I Total Protein Albumin Globulin Albumin/Globulin Ratio Urine Color Urine Clarity Urine pH Ur Specific [place] Urine Protein Urine Glucose (UA) Urine Ketones Urine Blood Urine Nitrate Urine Bilirubin Urine Urobilinogen Ur Leukocyte Esterase Urine RBC (Auto) Urine Microscopic WBC Ur Squamous Epith Cells Urine Bacteria C. difficile Ag & Toxin Negative Assessment & Plan (1) Abdominal pain Status: Acute (2) Diarrhea Status: Acute (3) Elevated troponin Status: Acute - Assessment and Plan (Free Text) Plan: available diagnostic data reviewed monitor labs monitor vitals surgery on board cardiology on board IVF advance diet as tolerated cipro/flagyl culture pending pain control prn rest of plan as ordered
--- NOTE | 2019-03-27 19:35 | CARD ---
APPROVED REPORT Date of service: 03/27/2019 EXAM: Two-dimensional and M-mode echocardiogram with Doppler and color Doppler. Other Information Quality : GoodRhythm : Tachycardia INDICATION Elevated Troponins 2D DIMENSIONS IVSd1.17 (0.7-1.1cm)LVDd3.81 (3.9-5.9cm) LVOT Diameter1.94 (1.8-2.4cm)PWd1.08 (0.7-1.1cm) IVSs1.15 (0.8-1.2cm)LVDs2.61 (2.5-4.0cm) FS (%) 31.6 %PWs1.17 (0.8-1.2cm) M-Mode DIMENSIONS Left Atrium (MM)4.50 (2.5-4.0cm)IVSd0.82 (0.7-1.1cm) Aortic Root2.97 (2.2-3.7cm)LVDd4.32 (4.0-5.6cm) Aortic Cusp Exc.1.79 (1.5-2.0cm)PWd0.82 (0.7-1.1cm) IVSs1.47 cmFS (%) 43 % LVDs2.47 (2.0-3.8cm)PWs1.06 cm Aortic Valve AoV Peak Zmqyqwsj578.4cm/sAoV VTI27.5cmAO Peak GR.13mmHg LVOT Peak Cqzenjmu388.1cm/sLVOT VTI20.15cmAO Mean GR.7mmHg JOSLYN (VMAX)1.18oe7TEG (VTI)1.27cm2 Mitral Valve MV E Ywzzpdwn18.7cm/sMV DECEL BPIC435rxKQ A Qakezhcu01.2cm/s MV UEK33rkZ/A ratio0.9MVA (PHT)3.77cm2 TDI Lateral E' Peak V9.78cm/sE/Lateral E'7.9E/Medial E'0.0 Tricuspid Valve RAP AVSYQVIU87ygVtUY Peak Gr.69wvDzWMBQ50jmUc LEFT VENTRICLE The left ventricle is normal size. There is normal left ventricular wall thickness. The left ventricular systolic function is normal. The estimated ejection fraction is 60-65% No regional wall motion abnormalities noted.. Transmitral Doppler flow pattern is Grade I-abnormal relaxation pattern. No left ventricle thrombus noted on this study. There is no ventricular septal defect visualized. There is no left ventricular aneurysm. There is no mass noted in the left ventricle. RIGHT VENTRICLE The right ventricle is normal size. There is normal right ventricular wall thickness. The right ventricular systolic function is normal. ATRIA The left atrium is mildly dilated. The right atrium size is normal. The interatrial septum is intact with no evidence for an atrial septal defect. AORTIC VALVE The aortic valve is normal in structure. No aortic regurgitation is present. There is no aortic valvular stenosis. There is no aortic valvular vegetation. MITRAL VALVE The mitral valve is normal in structure. There is no evidence of mitral valve prolapse. There is no mitral valve stenosis. There is no mitral valve regurgitation noted. TRICUSPID VALVE The tricuspid valve is normal in structure. There is no tricuspid valve regurgitation noted. There is no tricuspid valve prolapse or vegetation. There is no tricuspid valve stenosis. PULMONIC VALVE The pulmonary valve is normal in structure. There is no pulmonic valvular regurgitation. There is no pulmonic valvular stenosis. GREAT VESSELS The aortic root is normal in size. The ascending aorta is normal in size. The pulmonary artery is normal. The IVC is normal in size and collapses >50% with inspiration. PERICARDIAL EFFUSION There is no pericardial effusion. There is no pleural effusion. <Conclusion> The estimated ejection fraction is 60-65% Transmitral Doppler flow pattern is Grade I-abnormal relaxation pattern. The left atrium is mildly dilated. There is no tricuspid valve regurgitation noted.
[2019-03-28] MEDS: Ciprofloxacin 400mg/200ml D5W 400 MG/200 ML BAG IVPB SCH ×2 (00:27→12:42)
[2019-03-28] MEDS: metroNIDAZOLE 500mg/100ml NS 100 ML IVPB SCH ×3 (00:27→16:18)
[2019-03-28] MEDS: Lactated Ringer's 1,000 ML IV SCH ×3 (00:27→21:58)
[2019-03-28] MEDS: Lactobacillus Acidophilus 500 MU Cap PO SCH ×2 (08:40→16:17)
[2019-03-28] MEDS: GlipiZIDE 5 mg SR Tab PO SCH (08:44)
[2019-03-28] MEDS: Pantoprazole 40 mg EC Tab PO SCH (08:44)
[2019-03-28] MEDS: Lithium Carbonate 150 MG CAP PO SCH ×2 (08:44→16:18)
[2019-03-28] MEDS: Enoxaparin 40 mg Syringe SC SCH (08:45)
[2019-03-28 10:13] LABS: HEMOGLOBIN 11.1 g/dL (12.0-16.0); MEAN CELL VOLUME 79.3 fl (81.0-99.0); MEAN CORPUSCULAR HEMOGLOBIN 26.1 pg (27.0-31.0); RBC 4.25 Mil/uL (3.80-5.20); RED CELL DISTRIBUTION WIDTH 17.3 % (11.5-14.5); WHITE BLOOD COUNT 10.3 K/uL (4.8-10.8)
[2019-03-28 11:03] LABS: BLOOD UREA NITROGEN 4 mg/dl (7-17); CALCIUM 8.6 mg/dL (8.4-10.2); GFR NON-AFRICAN AMERICAN > 60
--- NOTE | 2019-03-28 11:44 | CP.PCM.PN ---
Subjective - Date & Time of Evaluation Date of Evaluation: 03/28/19 Time of Evaluation: 13:00 - Subjective Subjective: NO CP OR SOB. CONTINUED MILD DIARRHEA. BP MILDLY ELEVATED BUT PT IS ANXIOUS. Objective - Vital Signs/Intake and Output Vital Signs (last 24 hours): Temp Pulse Resp BP Pulse Ox 97.8 F 84 18 152/79 H 97 03/28/19 08:00 03/28/19 08:45 03/28/19 08:00 03/28/19 08:45 03/28/19 08:00 - Medications Medications: Current Medications Atorvastatin Calcium (Lipitor) 10 mg PO DAILY [facility] Last Admin: 03/28/19 08:44 Dose: 10 mg Dicyclomine HCl (Bentyl) 10 mg PO QID [facility] Last Admin: 03/28/19 08:43 Dose: 10 mg Enoxaparin Sodium (Lovenox) 40 mg SC DAILY [facility]; Protocol Last Admin: 03/28/19 08:45 Dose: 40 mg Glipizide (Glucotrol Xl) 5 mg PO ACB [facility] Last Admin: 03/28/19 08:44 Dose: 5 mg Sodium Chloride (Sodium Chloride 0.9%) 1,000 mls @ 1,000 mls/hr IV .Q1H [facility] Last Admin: 03/26/19 10:45 Dose: 1,000 mls/hr Ciprofloxacin (Cipro 400mg/200ml Dsw) 400 mg in 200 mls @ 200 mls/hr IVPB Q12H [facility]; Protocol Last Admin: 03/28/19 00:27 Dose: 200 mls/hr Metronidazole (Flagyl 500mg/100ml Ns) 100 mls @ 100 mls/hr IVPB Q8 [facility] Last Admin: 03/28/19 08:46 Dose: 100 mls/hr Lactated Ringer's (Lactated Ringer's) 1,000 mls @ 150 mls/hr IV .Q6H40M [facility] Last Admin: 03/28/19 08:49 Dose: 150 mls/hr Insulin Human Lispro (Humalog) 0 units SC ACHS [facility]; Protocol Lactobacillus Acidophilus (Bacid Acidophilus) 1 cap PO BID [facility] Last Admin: 03/28/19 08:40 Dose: 1 cap Lisinopril (Zestril) 10 mg PO DAILY [facility] Last Admin: 05/31/19 08:45 Dose: 10 mg [place] Carbonate ([place] Carbonate 150mg) 150 mg PO BID [facility] Last Admin: 03/28/19 08:44 Dose: 150 mg Pantoprazole Sodium (Protonix Ec Tab) 40 mg PO DAILY [facility] Last Admin: 03/28/19 08:44 Dose: 40 mg Paroxetine HCl (Paxil) 10 mg PO DAILY [facility] Sitagliptin Phosphate (Januvia) 100 mg PO DAILY [facility] Last Admin: 03/28/19 08:46 Dose: 100 mg - Labs Labs: 03/28/19 09:55 03/28/19 09:55 PT 13.5 Seconds (9.8-13.1) H 03/26/19 10:30 INR 1.2 03/26/19 10:30 APTT 29.3 Seconds (25.6-37.1) 03/26/19 10:30 Assessment and Plan (1) Prerenal azotemia Status: Acute (2) Dehydration Status: Acute (3) Diarrhea Status: Acute (4) Elevated troponin Status: Acute - Assessment and Plan (Free Text) Plan: TROP IS NORMAL AFTER PRERENAL TREATED. NO NEED FOR FURTHER CARDIAC EVAL. EF NML. BP ELEVATION LIKELY DUE TO IVF AND ANXIETY. WOULD NOT TITRATE BP MEDS.
[2019-03-28] MEDS: Insulin Lispro (humaLOG) 100 Units/ml Inj SC SCH ×3 (12:42→23:20)
[2019-03-29] MEDS: metroNIDAZOLE 500mg/100ml NS 100 ML IVPB SCH ×2 (00:06→09:37)
[2019-03-29] MEDS: Ciprofloxacin 400mg/200ml D5W 400 MG/200 ML BAG IVPB SCH ×2 (00:16→12:30)
[2019-03-29] MEDS: Lactated Ringer's 1,000 ML IV SCH (06:42)
[2019-03-29] MEDS: Insulin Lispro (humaLOG) 100 Units/ml Inj SC SCH ×2 (06:48→12:00)
[2019-03-29 08:24] VITALS: RESP 20
[2019-03-29] MEDS: Lithium Carbonate 150 MG CAP PO SCH (09:38)
[2019-03-29] MEDS: GlipiZIDE 5 mg SR Tab PO SCH (09:38)
[2019-03-29] MEDS: Pantoprazole 40 mg EC Tab PO SCH (09:38)
[2019-03-29] MEDS: Enoxaparin 40 mg Syringe SC SCH (09:39)
[2019-03-29] MEDS: Lactobacillus Acidophilus 500 MU Cap PO SCH (09:40)
[2019-03-29 12:34] VITALS: BP 168/87; PULSE 89; TEMP 97.7; O2SAT 98
--- NOTE | 2019-03-29 14:36 | CP.PCM.DIS ---
Provider - Provider Date of Admission: 03/26/19 14:55 Attending physician: Yoel Dumont MD Consults: 03/26/19 14:41 Cardiology Consult Stat Comment: Consulting Provider: Tahir Pizarro Consulting Physician: Tahir Pizarro Reason for Consult: elevated troponin 03/26/19 14:54 Critical Care Consult Stat Comment: Consulting Provider: Michele Hogan Consulting Physician: Michele Hogan Reason for Consult: colitis, cholecystitis, sepsis, elevated trop 03/26/19 15:58 Surgery [General Surgery Consult] Routine Comment: Consulting Provider: Miles Nelson Consulting Physician: Miles Nelson Reason for Consult: gastroenteritis and possible cholecystitis 03/26/19 16:13 Cardiology Consult Routine Comment: Consulting Provider: Tahir Pizarro Consulting Physician: Tahir Pizarro Reason for Consult: troponin elevation Time Spent in preparation of Discharge (in minutes): 30 Diagnosis - Discharge Diagnosis (1) UTI (urinary tract infection) Status: Acute (2) Gastroenteritis Status: Acute (3) Diarrhea Status: Acute Hospital Course - Lab Results Lab Results: Micro Results 03/26/19 11:00 Blood Blood Culture - Preliminary NO GROWTH AFTER 3 DAYS 03/26/19 10:30 Blood Blood Culture - Preliminary NO GROWTH AFTER 3 DAYS 03/27/19 03:30 Stool Stool Culture - Final NO SALMONELLA, SHIGELLA OR CAMPYLOBACTER ISOLATED. 03/26/19 20:00 Urine,Clean Catch Urine Culture - Final Escherichia Coli 03/27/19 03:30 Stool Ova and Parasite Concentrate Exam - Final Most Recent Lab Values WBC 10.3 K/uL (4.8-10.8) 03/28/19 09:55 RBC 4.25 Mil/uL (3.80-5.20) 03/28/19 09:55 Hgb 11.1 g/dL (12.0-16.0) L 03/28/19 09:55 Hct 33.7 % (34.0-47.0) L 03/28/19 09:55 MCV 79.3 fl (81.0-99.0) L 03/28/19 09:55 MCH 26.1 pg (27.0-31.0) L 03/28/19 09:55 MCHC 33.0 g/dL (33.0-37.0) 03/28/19 09:55 RDW 17.3 % (11.5-14.5) H 03/28/19 09:55 Plt Count 334 K/uL (130-400) 03/28/19 09:55 MPV 9.0 fl (7.2-11.7) 03/27/19 04:35 Neut % (Auto) 70.2 % (50.0-75.0) 03/27/19 04:35 Lymph % (Auto) 16.5 % (20.0-40.0) L 03/27/19 04:35 [place] % (Auto) 11.4 % (0.0-10.0) H 03/27/19 04:35 Eos % (Auto) 1.4 % (0.0-4.0) 03/27/19 04:35 Baso % (Auto) 0.5 % (0.0-2.0) 03/27/19 04:35 Neut # (Auto) 7.6 K/uL (1.8-7.0) H 03/27/19 04:35 Lymph # (Auto) 1.8 K/uL (1.0-4.3) 03/27/19 04:35 [place] # (Auto) 1.2 K/uL (0.0-0.8) H 03/27/19 04:35 Eos # (Auto) 0.1 K/uL (0.0-0.7) 03/27/19 04:35 Baso # (Auto) 0.1 K/uL (0.0-0.2) 03/27/19 04:35 PT 13.5 Seconds (9.8-13.1) H 03/26/19 10:30 INR 1.2 03/26/19 10:30 APTT 29.3 Seconds (25.6-37.1) 03/26/19 10:30 pO2 20 mm/Hg (30-55) L 03/26/19 10:27 VBG pH 7.36 (7.32-7.43) 03/26/19 10:27 VBG pCO2 40 mmHg (40-60) 03/26/19 10:27 VBG HCO3 21.4 mmol/L 03/26/19 10:27 VBG Total CO2 23.8 mmol/L (22-28) 03/26/19 10:27 VBG O2 Sat (Calc) 38.8 % (40-65) L 03/26/19 10:27 VBG Base Excess -2.7 mmol/L (0.0-2.0) L 03/26/19 10:27 VBG Potassium 4.9 mmol/L (3.6-5.2) 03/26/19 10:27 Sodium 129.0 mmol/L (132-148) L 03/26/19 10:27 Chloride 100.0 mmol/L (98-107) 03/26/19 10:27 Glucose 220 mg/dL (65-105) H 03/26/19 10:27 Lactate 1.6 mmol/L (0.7-2.1) 03/26/19 10:27 FiO2 21.0 % 03/26/19 10:27 Sodium 135 mmol/l (132-148) 03/28/19 09:55 Potassium 3.7 MMOL/L (3.6-5.0) 03/28/19 09:55 Chloride 105 mmol/L (98-107) 03/28/19 09:55 Carbon Dioxide 21 mmol/L (22-30) L 03/28/19 09:55 Anion Gap 13 (10-20) 03/28/19 09:55 BUN 4 mg/dl (7-17) L 03/28/19 09:55 Creatinine 0.5 mg/dl (0.7-1.2) L 03/28/19 09:55 Est GFR ( Amer) > 60 03/28/19 09:55 Est GFR (Non-Af Amer) > 60 03/28/19 09:55 POC Glucose (mg/dL) 246 mg/dL (65-110) H 03/29/19 11:02 Random Glucose 207 mg/dL (65-105) H 03/28/19 09:55 Calcium 8.6 mg/dL (8.4-10.2) 03/28/19 09:55 Phosphorus 4.0 mg/dl (2.5-4.5) 03/26/19 10:30 Magnesium 1.5 MG/DL (1.6-2.3) L 03/26/19 10:30 Total Bilirubin 0.4 mg/dl (0.2-1.3) 03/27/19 04:35 AST 42 U/L (14-36) H D 03/27/19 04:35 ALT 34 U/L (9-52) 03/27/19 04:35 Alkaline Phosphatase 52 U/L (38-126) 03/27/19 04:35 Troponin I 0.0370 ng/mL (0.00-0.120) 03/27/19 06:18 Total Protein 6.3 G/DL (6.3-8.2) 03/27/19 04:35 Albumin 3.2 g/dL (3.5-5.0) L D 03/27/19 04:35 Globulin 3.1 gm/dL (2.2-3.9) 03/27/19 04:35 Albumin/Globulin Ratio 1.1 (1.0-2.1) 03/27/19 04:35 Venous Blood Potassium 4.9 mmol/L (3.6-5.2) 03/26/19 10:27 Urine Color Yellow (YELLOW) 03/26/19 20:30 Urine Clarity Clear (Clear) 03/26/19 20:30 Urine pH 6.0 (5.0-8.0) 03/26/19 20:30 Ur Specific [place] 1.021 (1.003-1.030) 03/26/19 20:30 Urine Protein Negative mg/dL (NEGATIVE) 03/26/19 20:30 Urine Glucose (UA) Neg mg/dL (NEGATIVE) 03/26/19 20:30 Urine Ketones Negative mg/dL (NEGATIVE) 03/26/19 20:30 Urine Blood Negative (NEGATIVE) 03/26/19 20:30 Urine Nitrate Positive (NEGATIVE) H 03/26/19 20:30 Urine Bilirubin Negative (NEGATIVE) 03/26/19 20:30 Urine Urobilinogen 0.2-1.0 mg/dL (0.2-1.0) 03/26/19 20:30 Ur Leukocyte Esterase Neg [place]/uL (Negative) 03/26/19 20:30 Urine RBC (Auto) 2 /hpf (0-3) 03/26/19 20:30 Urine Microscopic WBC < 1 /hpf (0-5) 03/26/19 20:30 Ur Squamous Epith Cells 1 /hpf (0-5) 03/26/19 20:30 Urine Bacteria Many (<OCC) H 03/26/19 20:30 C. difficile Ag & Toxin Negative (NEGATIVE) 03/27/19 10:00 - Hospital Course Hospital Course: 73 yo female presented to ED with diarrhea and abdominal pain since [place] weekend. CT A/P was completed in ED, possible cholecystitis and colon inflammation. Troponin was noted to be elevated as well. Surgery and Cardiology was consulted. Cholecystitis was ruled out Cardiac evaluation was completed, unremarkable patient improved with treatment UTI with multiple resistance and patient with penicillin allergy, rash only Cefpodoxime was prescribed x 7 days patient to follow up with PCP in 1 week patient to return to ED if worsening symptoms Discharge Exam - Head Exam Head Exam: ATRAUMATIC, NORMAL INSPECTION, NORMOCEPHALIC - Eye Exam Eye Exam: Normal appearance - Respiratory Exam Respiratory Exam: NORMAL BREATHING PATTERN - Cardiovascular Exam Cardiovascular Exam: +S1, +S2 - GI/Abdominal Exam GI & Abdominal Exam: Unremarkable - Neurological Exam Neurological exam: Alert, Oriented x3 - Psychiatric Exam Psychiatric exam: Normal Affect, Normal Mood - Skin Skin Exam: Normal Color, Warm Discharge Plan - Discharge Medications Prescriptions: Cefpodoxime [Vantin] 200 mg PO BID #14 tab - Follow Up Plan Condition: STABLE Disposition: HOME/ ROUTINE Instructions: Sepsis, Adult (DC), Gallstones (DC), Colitis (DC) Additional Instructions: follow up appt with primary MD in 1 week Referrals: Maddison Solomon MD [Family Provider] - Yoel Dumont MD [Staff Provider] -
--- NOTE | 2019-04-01 22:21 | PQF ---
PROVIDER RESPONSE TEXT: Sepsis due to UTI (E Coli) REVIEWER QUERY TEXT: Rule Out Sepsis Clarification EMERGENCY ROOMS DOCUMENTS : SEPSIS (WBC 11.5) WAS SEPSIS RULED IN OR OUT. D/C SUMMARY : IF SEPSIS RULED IN WAS IT SECONDARY TO UTI. Rule out Sepsis is documented in the Medical Record. Please clarify whether: -- Patient has sepsis - Please document confirmed, suspected or probable causative organism - Please document confirmed, suspected or probable localized infection - Please clarify if sepsis is related to a device - Please clarify if sepsis was present on admission -- Sepsis was ruled out (include corresponding diagnosis for patient?s clinical picture and treatment ) -- Patient had sepsis which is resolved -- Other, please specify The patient's Clinical Indicators include: XXX Query created by: Darcy Paulino on 04/01/2019 11:54 AM Electronically signed by: John Cartwright 04/01/2019 10:19 PM
== END 2019-03-29 16:45 | disposition home or self-care (01) | DRG 872 ==
LOC: H.ER 09:07 → H.ERHOLD 14:55 → H.TEL 21:35
PROVIDERS: ADMIT Family Medicine; ATTEND Family Medicine
DX: A41.9 Sepsis, unspecified organism (principal); N39.0 Urinary tract infection, site not specified; K52.9 Noninfective gastroenteritis and colitis, unspecified; E86.0 Dehydration; E11.9 Type 2 diabetes mellitus without complications; E78.00 Pure hypercholesterolemia, unspecified; I10 Essential (primary) hypertension; Z88.0 Allergy status to penicillin; Z90.710 Acquired absence of both cervix and uterus; F32.9 Major depressive disorder, single episode, unspecified; R00.0 Tachycardia, unspecified; R74.8 Abnormal levels of other serum enzymes; B96.20 Unspecified Escherichia coli [E. coli] as the cause of diseases classified elsewhere